=== PATIENT | female | born 1970 | race Asian ===

== ENCOUNTER 2019-02-15 01:08 | Emergency (ER) | payer SELFPAY ==
[~2019-02-15] VITALS: Ht 157.5 cm; Wt 63.5 kg
[2019-02-15 01:15] VITALS: BP_SYST 152
[2019-02-15] MEDS ORDERED: DIPH-TET-PERTUS Vaccine 0.5 ML VIAL (ADACEL) IM ONE (01:30)
[2019-02-15 03:02] VITALS: BP_SYST 139
== END 2019-02-15 03:02 | disposition home or self-care (01) ==
LOC: SED 01:08
DX: S61.211A Laceration without foreign body of left index finger without damage to nail, initial encounter (principal); W26.0XXA Contact with knife, initial encounter; Y93.89 Activity, other specified; Y92.89 Other specified places as the place of occurrence of the external cause; Y99.8 Other external cause status
CPT/HCPCS: 90715; 99283